=== PATIENT | female | born 1995 | race Caucasian/White ===

== ENCOUNTER 2017-11-20 16:24 | Emergency (ER) | payer BC ==
[2017-11-20 20:02] VITALS: BP 104/70
--- NOTE | 2017-11-20 20:02 | UC ---
Respiratory Complaint HPI - HPI Summary HPI Summary: c/o stuffy nose, sore throat and low grade fever for several days. Denies history of asthma, smoking or contact with strept throat. - History of Current Complaint Chief Complaint: UCRespiratory Stated Complaint: THROAT PAIN Time Seen by Provider: 11/20/17 19:36 Hx Obtained From: Patient Hx Last Menstrual Period: 11/17/17 ?: No Onset/Duration: Gradual Onset, Lasting Days Severity Initially: Mild Severity Currently: Mild Pain Intensity: 2 - Risk Factors Pulmonary Embolism Risk Factors: Negative Cardiac Risk Factors: Negative Tuberculosis Risk Factors: Corticosteriod Use - Allergies/Home Medications Allergies/Adverse Reactions: Allergies Allergy/AdvReac Type Severity Reaction Status Date / Time Sulfa (Sulfonamide Allergy GI Upset Verified 11/20/17 16:47 Antibiotics) Home Medications: Home Medications Pseudoephedrine HCl [Sudafed 12 Hour] 120 mg PO 11/20/17 [History] PMH/Surg Hx/FS Hx/Imm Hx Previously Healthy: Yes - Surgical History Surgical History: None - Family History Known Family History: Positive: None - Social History Alcohol Use: Occasionally Substance Use Type: None Smoking Status (MU): Never Smoked Tobacco Length of Time of Smoking/Using Tobacco: 5 MO. When Did the Patient Quit Smoking/Using Tobacco: 1 YR AGO Review of Systems Constitutional: Fever ENT: Sore Throat, Nasal Discharge Respiratory: Negative All Other Systems Reviewed And Are Negative: Yes Physical Exam Triage Information Reviewed: Yes Appearance: Well-Appearing Vital Signs: Initial Vital Signs Temp 98.5 F 11/20/17 17:26 Pulse 92 11/20/17 17:26 Resp 18 11/20/17 17:26 BP 131/81 11/20/17 17:26 Pulse Ox 100 11/20/17 17:26 Vital Signs Reviewed: Yes ENT Exam: Normal Dental Exam: Normal Neck exam: Normal Respiratory Exam: Normal Cardiovascular Exam: Normal UC Diagnostic Evaluation - Laboratory O2 Sat by Pulse Oximetry: 100 Respiratory Course/Dx - Course Course Of Treatment: continue PO fluids, tylenol when needed - Differential Dx/Diagnosis Provider Diagnoses: URI viral Discharge - Discharge Plan Condition: Stable Disposition: HOME Patient Education Materials: Pharyngitis (ED), Viral Syndrome (ED) Referrals: No Primary Care Phys,NOPCP [Primary Care Provider] -
== END 2017-11-20 20:15 | disposition home or self-care (01) ==
LOC: UCEAST 16:24
DX: J06.9 Acute upper respiratory infection, unspecified (principal); Z88.3 Allergy status to other anti-infective agents; Z88.2 Allergy status to sulfonamides
CPT/HCPCS: 87651; 99212; G0463